=== PATIENT | female | born 1995 | race Caucasian/White ===

== ENCOUNTER 2016-10-19 03:20 | Emergency (ER) | payer OTHER ==
[2016-10-19] MEDS ORDERED: NORMAL SALINE 1000 ML 1,000 ML IV ONE (04:19)
[2016-10-19] MEDS ORDERED: ACETAMINOPHEN 325 MG TABLET PO ONE (04:20)
[2016-10-19 04:45] LABS: ABSOLUTE EOSINOPHILS # (AUTO) 0.1 10^3/uL (0.0-0.6); ABSOLUTE MONOCYTES (AUTO) 0.6 10^3/uL (0.1-1.4); ABSOLUTE NEUT (AUTO) 7.8 10^3/uL (1.7-8.2); BASOPHILS % (AUTO) 0.3 % (0-2); HEMATOCRIT 36.1 % (36.0-47.0); HEMOGLOBIN 12.5 g/dL (12.0-15.5); HGB HCT DIFFERENCE 1.4; MEAN CORPUSCULAR HEMOGLOBIN 30.7 pg (27.0-33.4); MEAN CORPUSCULAR HGB CONC 34.6 g/dL (32.0-36.0); MEAN CORPUSCULAR VOLUME 89 fl (80-97); MONOCYTES % (AUTO) 5.5 % (3-13); RED BLOOD COUNT 4.06 10^6/uL (3.72-5.28); RED CELL DISTRIBUTION WIDTH 13.1 % (11.5-14.0); SEGMENTED NEUTROPHILS % (AUTO) 74.2 % (42-78); WHITE BLOOD COUNT 10.5 10^3/uL (4.0-10.5)
[2016-10-19 05:05] LABS: ALANINE AMINOTRANSFERASE 22 U/L (9-52); ALBUMIN 3.9 g/dL (3.5-5.0); ALKALINE PHOSPHATASE 60 U/L (38-126); ANION GAP 13 (5-19); ASPARTATE AMINO TRANSFERASE 39 U/L (14-36); BILIRUBIN,DIRECT 0.2 mg/dL (0.0-0.4); BILIRUBIN,TOTAL 0.5 mg/dL (0.2-1.3); BLOOD UREA NITROGEN 8 mg/dL (7-20); CARBON DIOXIDE 22 mmol/L (22-30); CHLORIDE 107 mmol/L (98-107); CREATININE RESULT 0.46 mg/dL (0.52-1.25); GLUCOSE 82 mg/dL (75-110); LIPASE 58.5 U/L (23-300); POTASSIUM 3.8 mmol/L (3.6-5.0); SODIUM 142.2 mmol/L (137-145); TOTAL PROTEIN 7.1 g/dL (6.3-8.2)
[2016-10-19 06:25] LABS: APPEARANCE,URINE CLEAR; BILIRUBIN,URINE NEGATIVE (NEGATIVE); GLUCOSE, URINE NEGATIVE (NEGATIVE); KETONES,URINE NEGATIVE (NEGATIVE); LEUKOCYTE ESTERASE,URINE TRACE (NEGATIVE); NITRITE,URINE NEGATIVE (NEGATIVE); PROTEIN,URINE NEGATIVE (NEGATIVE); URINE SPECIFIC GRAVITY 1.003; UROBILINOGEN,URINE NEGATIVE mg/dL (<2.0)
--- NOTE | 2016-10-19 07:16 | ER Document Report ---
ED GI/ - General Chief Complaint: OB Problem (<20wks) Stated Complaint: ABDOMINAL PAIN,CRAMPS, 17WKS Mode of Arrival: Ambulatory Information source: Patient Notes: 21-year-old F who reports is approximately 17 weeks , , presents to the emergency department complaining of mid and right lower abdomen/pelvic pain intermittently persistent since approximately 2100 this evening. Patient describes pain as sharp/cramping mostly to mid lower pelvis. Radiates to right lower pelvic/abdominal area. Reports nausea without vomiting when pain is at its worse. Denies fall or trauma, fever, vomiting, vaginal bleeding or discharge, dysuria, flank pain, or blood in stool. TRAVEL OUTSIDE OF THE [place] IN LAST 30 DAYS: No - HPI Patient complains to provider of: Pelvic pain, . No: Dysuria, Hematuria Onset: This evening Timing/Duration: Intermittent, Persistent Quality of pain: Cramping, Sharp Severity at maximum: Moderate Severity in ED: Mild Pain Level: 3 Context: Location: RLQ, Suprapubic, Pelvis Vaginal bleeding (Compared to normal period): None : 2 Para: 1 OB ultrasound done: Yes vitamins taken: Yes Sexual history: Active - In monogamous relationship with . denies: New partner, Multiple partners, Unprotected intercourse Exacerbated by: denies: Denies Relieved by: denies: Denies Similar symptoms previously: No Recently seen / treated by doctor: No - Related Data Allergies/Adverse Reactions: montelukast [From Singulair] Adverse Reaction (Mild, Verified 10/19/16 03:25) Past Medical History - General Information source: Patient - Social History Smoking Status: Never Smoker Frequency of alcohol use: None Drug Abuse: None Lives with: Family Family History: Reviewed & Not Pertinent Patient has suicidal ideation: No Patient has homicidal ideation: No - Medical History Medical History: Negative Renal/ Medical History: Denies: Hx Peritoneal Dialysis Surgical Hx: Negative - Immunizations Hx Diphtheria, Pertussis, Tetanus Vaccination: Yes Review of Systems - Review of Systems Constitutional: No symptoms reported EENT: No symptoms reported Cardiovascular: No symptoms reported Respiratory: No symptoms reported Gastrointestinal: See HPI Genitourinary: No symptoms reported Female Genitourinary: See HPI Musculoskeletal: No symptoms reported Skin: No symptoms reported Hematologic/Lymphatic: No symptoms reported Neurological/Psychological: No symptoms reported -: Yes All other systems reviewed and negative Physical Exam - Vital signs Vitals: Temp Pulse Resp BP Pulse Ox 97.8 F 93 20 117/74 98 10/19/16 03:25 10/19/16 03:25 10/19/16 03:25 10/19/16 03:25 10/19/16 03:25 Interpretation: Normal - General General appearance: Appears well, Alert In distress: None - HEENT Head: Normocephalic, Atraumatic Eyes: Normal Pupils: PERRL - Respiratory Respiratory status: No respiratory distress Chest status: Nontender Breath sounds: Normal Chest palpation: Normal - Cardiovascular Rhythm: Regular Heart sounds: Normal auscultation Murmur: No Pulses: Normal: Radial Normal capillary refill: Yes - Abdominal Inspection: Normal Distension: No distension Bowel sounds: Normal Tenderness: Tender - Mild tenderness with palpation to mid and right lower abdomen/pelvis.. No: Nontender, McBurney's point, Mcgrath's sign, Guarding, Rebound, Other Organomegaly: No organomegaly - Genitourinary External exam: Normal. No: Lesions, Bruising Speculum exam: Normal, Cervix closed. No: Vaginal discharge Vaginal bleeding: None Bimanuel exam: Normal. No: Cervical motion tender Notes: Chaperoned by Lakeisha Minor LPN. - Back Back: Normal, Nontender - Extremities General upper extremity: Normal inspection, Nontender, Normal color, Normal ROM , Normal strength, Normal temperature General lower extremity: Normal inspection, Nontender, Normal color, Normal ROM , Normal strength, Normal temperature, Normal weight bearing - Neurological Neuro grossly intact: Yes Cognition: Normal Orientation: AAOx4 [place] Coma Scale Eye Opening: Spontaneous [place] Coma Scale Verbal: Oriented [place] Coma Scale Motor: Obeys Commands [place] Coma Scale Total: 15 Speech: Normal Motor strength normal: LUE, RUE, LLE, RLE Sensory: Normal - Psychological Associated symptoms: Normal affect, Normal mood - Skin Skin Temperature: Warm Skin Moisture: Dry Skin Color: Normal Course - Re-evaluation Re-evalutation: 10/19/16 07:24 Patient hemodynamically stable, in no distress, afebrile, nontoxic and appears well-hydrated. Patient reports is O negative and has received RhoGAM during this . Reports symptoms significantly improved after 1 L normal saline bolus and oral acetaminophen. Patient presentation and physical exam findings not suggestive of peritonitis, surgical abdomen, or other emergent GI etiology such as appendicitis at this time. Labs unremarkable. Ultrasound shows probable venous seaman in the placenta however cannot rule out the abruption per radiologist. Otherwise normal OB ultrasound with living intrauterine 16 week 5 day . Patient presentation and findings discussed with AUTOMOTIVE SERVICE TECHNICIAN aviation project manager Dr. Jerry who recommends obtaining pelvic panel (wet prep and GC/chlamydia) and have patient follow up with her AUTOMOTIVE SERVICE TECHNICIAN today. 10/19/16 08:23 Notified per lab that pelvic specimen swabs were mislabeled by nursing staff. Discussed this with patient who understandably declined repeat pelvic exam. Patient appears stable for discharge as she has remained hemodynamically stable , has had no increase in pelvic pain, vaginal bleeding, fever, or other worsening symptoms and has been in the emergency department for almost 6 hours. Home care, follow-up, and strict ED return precautions were discussed and who verbalized understanding and agrees with plan. - Vital Signs Vital signs: Temp Pulse Resp BP Pulse Ox 97.8 F 93 20 117/74 98 10/19/16 03:25 10/19/16 03:25 10/19/16 03:25 10/19/16 03:25 10/19/16 03:25 - Laboratory Result Diagrams: 10/19/16 04:25 10/19/16 04:25 Laboratory results interpreted by me: 10/19/16 10/19/16 04:25 05:58 Creatinine 0.46 L AST 39 H Beta HCG, Quant 51955.00 H Ur Leukocyte Esterase TRACE H - Diagnostic Test Radiology reviewed: Image reviewed, Reports reviewed Discharge - Discharge Clinical Impression: Pelvic pain during in second trimester, antepartum Condition: Stable Disposition: HOME, SELF-CARE Instructions: Pelvic Pain in ([facility]), Threatened Miscarriage ([facility]), Observation for Appendicitis ([facility]), Acetaminophen Additional Instructions: Follow-up with your AUTOMOTIVE SERVICE TECHNICIAN today. Return to the emergency department for any increasing pain, vaginal bleeding, fever, abdominal/pelvic distention, or any worsening symptoms or concerns. Referrals: NICK THAKUR DO [NO LOCAL MD] - 10/19/16
[2016-10-19 08:21] LABS: URINE BARBITURATES SCREEN NEGATIVE; URINE METHADONE SCREEN NEGATIVE; URINE OPIATES LOW NEGATIVE; URINE PHENCYCLIDINE SCREEN NEGATIVE
[2016-10-19 08:35] VITALS: BP 101/60
== END 2016-10-19 08:31 | disposition home or self-care (01) ==
LOC: ER 03:20
DX: O26.892 Other specified pregnancy related conditions, second trimester (principal); R10.2 Pelvic and perineal pain; R11.0 Nausea; Z3A.16 16 weeks gestation of pregnancy
CPT/HCPCS: 99284; 36415; 87086; 84702; 83690; 85025; 80053; 81001; 80307; 76805; 93976; J7030

== ENCOUNTER 2017-02-23 23:51 | Outpatient (CLI) | payer OTHER ==
[2017-02-24 00:26] LABS: APPEARANCE,URINE CLEAR; BILIRUBIN,URINE NEGATIVE (NEGATIVE); GLUCOSE, URINE NEGATIVE (NEGATIVE); KETONES,URINE NEGATIVE (NEGATIVE); LEUKOCYTE ESTERASE,URINE NEGATIVE (NEGATIVE); NITRITE,URINE NEGATIVE (NEGATIVE); PROTEIN,URINE NEGATIVE (NEGATIVE); URINE SPECIFIC GRAVITY 1.005; UROBILINOGEN,URINE NEGATIVE mg/dL (<2.0)
[2017-02-24 01:49] LABS: URINE BARBITURATES SCREEN NEGATIVE; URINE METHADONE SCREEN NEGATIVE; URINE OPIATES LOW NEGATIVE; URINE PHENCYCLIDINE SCREEN NEGATIVE
== END 2017-02-24 02:46 | disposition home or self-care (01) ==
LOC: LC 23:51
PROVIDERS: ATTEND Obstetrics & Gynecology
PROC: 4A1HXCZ Monitoring of Products of Conception, Cardiac Rate, External Approach (ICD-10-PCS; principal; 2017-02-23)
DX: Z36 Encounter for antenatal screening of mother (principal); Z3A.35 35 weeks gestation of pregnancy
CPT/HCPCS: 59025; 80307; 81001